=== PATIENT | male | born 1985 | race Caucasian/White ===

== ENCOUNTER 2019-04-09 10:18 | Inpatient (IN) | payer OTHER ==
[2019-04-09 13:11] VITALS: BMI 20.6
--- NOTE | 2019-04-09 14:35 | HP ---
COWS - Scale Resting Pulse: 0= ID 80 or Below Sweatin= Chills/Flushing Restless Observation: 1= Difficult to Sit Still Pupil Size: 1= Pupils >than Normal Bone or Joint Aches: 1= Mild Discomfort Runny Nose/ Eye Tearin= Nasal Congestion GI Upset > 30mins: 1= Stomach Cramp Tremor Observation: 2= Slight Tremor Visible Yawning Observation: 1= 1-2x During Session Anxiety or Irritability: 2=Irritable/Anxious Goose Flesh Skin: 0=Smooth Skin COWS Score: 11 CIWA Score Nausea/Vomitin Muscle Tremors: 3 Anxiety: 3 Agitation: 3 Paroxysmal Sweats: 2 Orientation: 2-Disoriented Date<2 days Tacttile Disturbances: 0-None Auditory Disturbances: 0-None Visual Disturbances: 0-None Headache: 3-Moderate CIWA-Ar Total Score: 19 - Admission Criteria [facility]ASAS Guidelines: Admission for Medically Managed Detox: Requires at least one of the followin. CIWA greater than 12 2. Seizures within the past 24 hours 3. Delirium tremens within the past 24 hours 4. Hallucinations within the past 24 hours 5. Acute intervention needed for co occurring medical disorder 6. Acute intervention needed for co occurring psychiatric disorder 7. Severe withdrawal that cannot be handled at a lower level of care (continued vomiting, continued diarrhea, abnormal vital signs) requiring intravenous medication and/or fluids 8. Admission ROS [facility] Chief Complaint: I WANNA GET BACK ON TRACK Allergies/Adverse Reactions: Allergies Allergy/AdvReac Type Severity Reaction Status Date / Time No Known Allergies Allergy Verified 04/09/19 13:01 History of Present Illness: GOT OFF METHADONE COLD TURKEY 4 MOS AGO THEN STARTED USING SUBXONE AND RELAPSED ABSTIENNT ON SUBOXONE X 2 YEARS HAS BEEN USING 3 BUNDLES DAILY - Ebola screening Have you traveled outside of the country in the last 21 days: No (N) Have you had contact with anyone from an Ebola affected area: No Do you have a fever: No - Review of Systems Constitutional: Loss of Appetite, Changes in sleep EENT: reports: Nose Congestion Respiratory: reports: No Symptoms reported Cardiac: reports: No Symptoms Reported GI: reports: Nausea, Abdominal cramping : reports: No Symptoms Reported Musculoskeletal: reports: Muscle Pain (STERNAL PAIN 2/2 TRAUMA) Integumentary: reports: Other (TRACTS) Neuro: reports: No Symptoms reported Endocrine: reports: No Symptoms Reported Hematology: reports: No Symptoms Reported Psychiatric: reports: Judgement Intact, Mood/Affect Appropiate, Orientated x3 Patient History - Patient Medical History Hx Anemia: No Hx Asthma: No Hx Chronic Obstructive Pulmonary Disease (COPD): No Hx Cancer: No Hx Cardiac Disorders: No Hx Congestive Heart Failure: No Hx Hypertension: No Hx Hypercholesterolemia: No Hx Pacemaker: No HX Cerebrovascular Accident: No Hx Seizures: Yes (BZO WITHDRAWAL 2 Y AGO) Hx Dementia: No Hx Diabetes: No Hx Gastrointestinal Disorders: No Hx Liver Disease: No Hx Genitourinary Disorders: No Hx Sexually Transmitted Disorders: No Hx Renal Disease (ESRD): No Hx Thyroid Disease: No Hx Human Immunodeficiency Virus (HIV): No Hx Hepatitis C: No Other Medical History: ANXIETY AND ADHD AGE 6 WAS RX ADDERRAL - Patient Surgical History Hx Orthopedic Surgery: Yes (ELBOW AND TOE) - Smoking Cessation Smoking history: Current every day smoker Have you smoked in the past 12 months: Yes Initiated information on smoking cessation: Yes 'Breaking Loose' booklet given: 04/09/19 - Substances abused Alprazolam (Xanax) Substance route: Oral Frequency: Daily Amount used: 2-3 bars Age of first use: 16 Date of last use: 04/08/19 Alcohol Substance route: Oral Frequency: Daily Amount used: 1-2 of vodka Age of first use: 14 Date of last use: 04/08/19 Heroin Other (specify): IV use Substance route: Injection Frequency: Daily Amount used: 2-3 bundles Age of first use: 26 Date of last use: 04/08/19 Admission Physical Exam S - Vital Signs Vital Signs: Vital Signs - 24 hr 04/09/19 13:03 Temperature 98.3 F Pulse Rate 76 Respiratory 16 Rate Blood Pressure 114/74 - Physical General Appearance: Yes: Irritable, Sweating, Anxious HEENTM: Yes: Within Normal Limits, EOMI, Hearing grossly Normal Respiratory: Yes: Within Normal Limits, Chest Non-Tender, Lungs Clear Neck: Yes: Within Normal Limits Breast: Yes: Breast Exam Deferred, Other (CHEST WALL TTP DIFFUSE) Cardiology: Yes: Within Normal Limits, Regular Rhythm, Regular Rate, S1, S2 Abdominal: Yes: Normal Bowel Sounds Genitourinary: Yes: Within Normal Limits Back: Yes: Within Normal Limits Musculoskeletal: Yes: Within Normal Limits, full range of Motion, Gait Steady Extremities: Yes: Within Normal Limits, Normal Capillary Refill, Normal Inspection Neurological: Yes: director employee safety and health II-XII NML intact, Alert, Motor Strength 5/5, Normal Mood /Affect Integumentary: Yes: Track Bowman - Diagnostic (1) Opiate withdrawal Current Visit: Yes Status: Acute (2) Benzodiazepine withdrawal Current Visit: Yes Status: Acute (3) Pain of sternum Current Visit: Yes Status: Acute Breathalyzer - Breathalyzer Breathalyzer: 0 Urine Drug Screen - Test Device Lot number: [id number] Expiration date: 12/16/20 - Control Is test valid?: Yes - Results Drug screen NEGATIVE: No Urine drug screen results: THC-Marijuana, LUCRECIA-Cocaine, FEN-Fentanyl, MOP-Opiates , MTD-Methadone Inpatient Rehab Admission - Rehab Decision to Admit Inpatient rehab admission?: No
[2019-04-09] MEDS ORDERED: NICOTINE POLACRILEX 2 MG GUM BUC PRN (14:45)
[2019-04-09] MEDS ORDERED: MAG HYDROX/AL HYDROX/SIMETH 30 ML UNIT-DOSE CUP PO PRN (14:45)
[2019-04-09] MEDS ORDERED: ACETAMINOPHEN 325 MG TABLET (FP) PO PRN ×2 (14:45)
[2019-04-09] MEDS ORDERED: MAGNESIUM HYDROX 2400MG/30ML ORAL SUSPENSION 30 ML CUP PO PRN (14:45)
[2019-04-09] MEDS ORDERED: METHADONE HCL 10 MG TABLET (FOR DETOX USE ONLY) PO ONE (14:45)
[2019-04-09] MEDS ORDERED: hydrOXYzine PAMOATE 25 MG CAPSULE (FP) PO PRN (14:45)
[2019-04-09] MEDS ORDERED: cloNIDine HCL 0.1 MG TABLET PO PRN (14:45)
[2019-04-09] MEDS ORDERED: BISMUTH SUBSALICYLATE 524 MG/30 ML UD PO PRN (14:45)
[2019-04-09] MEDS ORDERED: MAGNESIUM CITRATE 300 ML BOTTLE PO PRN (14:45)
[2019-04-09] MEDS ORDERED: MENTHOL/PHENOL 1 EACH UD MM PRN (14:45)
[2019-04-09] MEDS ORDERED: IBUPROFEN 400 MG TABLET (FP) PO PRN (14:45)
[2019-04-09] MEDS ORDERED: MELATONIN 5 MG TABLETS PO PRN (14:45)
[2019-04-09] MEDS: diazePAM 5 MG TABLET PO PRN (16:40)
[2019-04-09] MEDS: NICOTINE 21 MG/24 HOURS TOPICAL PATCH TD SCH (19:21)
[2019-04-09] MEDS: METHOCARBAMOL 500 MG TABLET PO PRN (19:21)
[2019-04-09] MEDS: diazePAM 5 MG TABLET PO SCH (22:00)
[2019-04-09] MEDS ORDERED: THIAMINE HCL 100 MG TABLET (FP) PO SCH (22:00)
[2019-04-10] MEDS: diazePAM 5 MG TABLET PO PRN ×2 (02:38→07:57)
[2019-04-10] MEDS: METHOCARBAMOL 500 MG TABLET PO PRN (02:38)
[2019-04-10] MEDS: diazePAM 5 MG TABLET PO SCH (05:55)
--- NOTE | 2019-04-10 07:06 | EKG ---
Test Reason : Blood Pressure : / mmHG Vent. Rate : 082 BPM Atrial Rate : 082 BPM P-R Int : 138 ms QRS Dur : 106 ms QT Int : 378 ms P-R-T Axes : 060 077 059 degrees QTc Int : 441 ms NORMAL SINUS RHYTHM NORMAL ECG NO PREVIOUS ECGS AVAILABLE Confirmed by RHONA AMANDA MD ([id number]) on 04/10/2019 7:06:10 AM Referred By: Confirmed By:RHONA AMANDA MD
[2019-04-10 07:07] VITALS: PULSE 57
[2019-04-10] MEDS ORDERED: LIDOCAINE VISCOUS 2% ORAL/TOP 20 ML UNIT-DOSE CUP MM PRN (07:43)
--- NOTE | 2019-04-10 07:45 | PN ---
[facility] Progress Note Note: xylocaine viscous 2% 20 mls prn for toothache q6hrs
[2019-04-10] MEDS ORDERED: METHADONE HCL 10 MG TABLET (FOR DETOX USE ONLY) ONE (09:24)
[2019-04-10] MEDS ORDERED: METHADONE HCL 5 MG TABLET (FOR DETOX USE ONLY) ONE (09:24)
[2019-04-10 09:32] VITALS: BP 106/70; TEMP 97.1
[2019-04-10] MEDS ORDERED: PRENATAL VITAMINS W/ FOLIC ACID TABLET (FP) PO SCH (10:00)
[2019-04-10] MEDS ORDERED: METHADONE (DETOX) 20 MG, METHADONE (DETOX) 5 MG PO ONE (10:00)
[2019-04-10 10:46] LABS: HEMATOCRIT 37.9 % (35.4-49); HEMOGLOBIN 12.9 GM/dL (11.7-16.9); MCH 32.1 pg (25.7-33.7); MEAN CELL VOLUME 94.5 fl (80-96); MEAN PLT VOLUME 8.8 fl (7.5-11.1); PLATELET COUNT 262 K/MM3 (134-434); RBC 4.01 M/mm3 (4.00-5.60); RDW 13.1 % (11.9-15.9); WHITE BLOOD COUNT 5.3 K/mm3 (4.0-10.0)
[2019-04-10 10:47] LABS: ALBUMIN 3.4 g/dl (3.4-5.0); BILIRUBIN,TOTAL 0.3 mg/dL (0.2-1); CALCIUM 9.5 mg/dL (8.5-10.1); CREATININE 0.7 mg/dL (0.55-1.3); POTASSIUM 3.8 mmol/L (3.5-5.1); TOT PROT 6.5 g/dl (6.4-8.2)
[2019-04-10] MEDS: NICOTINE 21 MG/24 HOURS TOPICAL PATCH TD SCH (10:59)
[2019-04-10] MEDS ORDERED: LORazepam 0.5 MG TABLET PO PRN (11:10)
--- NOTE | 2019-04-10 11:10 | PN ---
[facility] Progress Note (SOAP) Subjective: requests ativan for detox regimen
--- NOTE | 2019-04-10 12:24 | DS ---
[facility] Detox Discharge Summary Admission Date: 04/09/19 Discharge Date: 04/10/19 - History Present History: Alcohol Dependence, Opioid Dependence, Sedative Dependence Additional Comments: 33 years old male admitted on 04/09/19 for benzo and opiate withdrawal sx management requests more methadone encourage supportive therapeutic management patient request ativan that valium too slow not work for him modify ativan detox regimen instead of valium patient requests to [place] encourage the patient focus on sobriety encourage the patient consider medication assisted treatment program after lunch patient insists to leave the detox unit without apparent reason encourage the patient roll picker narcan from pharmacy - Physical Exam Results Vital Signs: Vital Signs Temperature 97.1 F L 04/10/19 09:31 Pulse Rate 57 L 04/10/19 09:31 Respiratory Rate 18 04/10/19 09:31 Blood Pressure 106/70 04/10/19 09:31 O2 Sat by Pulse Oximetry (%) Pertinent Admission Physical Exam Findings: alcohol benzo opiate withdrawal sx Laboratory Last Values WBC 5.3 K/mm3 (4.0-10.0) 04/10/19 08:30 RBC 4.01 M/mm3 (4.00-5.60) 04/10/19 08:30 Hgb 12.9 GM/dL (11.7-16.9) 04/10/19 08:30 Hct 37.9 % (35.4-49) 04/10/19 08:30 MCV 94.5 fl (80-96) 04/10/19 08:30 MCH 32.1 pg (25.7-33.7) 04/10/19 08:30 MCHC 34.0 g/dl (32.0-35.9) 04/10/19 08:30 RDW 13.1 % (11.9-15.9) 04/10/19 08:30 Plt Count 262 K/MM3 (134-434) 04/10/19 08:30 MPV 8.8 fl (7.5-11.1) 04/10/19 08:30 Sodium 138 mmol/L (136-145) 04/10/19 08:30 Potassium 3.8 mmol/L (3.5-5.1) 04/10/19 08:30 Chloride 105 mmol/L (98-107) 04/10/19 08:30 Carbon Dioxide 25 mmol/L (21-32) 04/10/19 08:30 Anion Gap 8 MMOL/L (8-16) 04/10/19 08:30 BUN 15.0 mg/dL (7-18) 04/10/19 08:30 Creatinine 0.7 mg/dL (0.55-1.3) 04/10/19 08:30 Est GFR (CKD-EPI)AfAm 143.71 04/10/19 08:30 Est GFR (CKD-EPI)NonAf 123.99 04/10/19 08:30 Random Glucose 94 mg/dL (74-106) 04/10/19 08:30 Calcium 9.5 mg/dL (8.5-10.1) 04/10/19 08:30 Total Bilirubin 0.3 mg/dL (0.2-1) 04/10/19 08:30 AST 10 U/L (15-37) L 04/10/19 08:30 ALT 20 U/L (13-61) 04/10/19 08:30 Alkaline Phosphatase 77 U/L (45-117) 04/10/19 08:30 Total Protein 6.5 g/dl (6.4-8.2) 04/10/19 08:30 Albumin 3.4 g/dl (3.4-5.0) 04/10/19 08:30 RPR Titer Nonreactive (NONREACTIVE) 04/10/19 08:30 lab noted - Treatment Hospital Course: Detox Protocol Followed, Responded well Patient has Accepted a Rehab Referral to: medication assisted treatment program - Medication Discharge Medications: Ambulatory Orders Naloxone HCl [Narcan] 4 mg NS ASDIR PRN #1 spray 04/10/19 - Diagnosis (1) Alcohol dependence with uncomplicated withdrawal Status: Acute (2) Benzodiazepine withdrawal Status: Acute Qualifiers: Complication of substance-induced condition: uncomplicated Qualified Code(s ): F13.230 - Sedative, hypnotic or anxiolytic dependence with withdrawal, uncomplicated (3) Opiate withdrawal Status: Acute - AMA Did Patient Leave Against Medical Advice: Yes CIWA Score - CIWA Score Nausea/Vomitin Muscle Tremors: 2 Anxiety: 2 Agitation: 2 Paroxysmal Sweats: 1-Minimal Palms Moist Orientation: 0-Oriented Tacttile Disturbances: 0-None Auditory Disturbances: 0-None Visual Disturbances: 0-None Headache: 3-Moderate CIWA-Ar Total Score: 12 COWS (PN) - Opiate Withdrawal Resting Pulse: 0= [place] 80 or Below Sweatin= Chills/Flushing Restless Observation: 0= Sits Still Pupil Size: 0= Normal to Room Light Bone or Joint Aches: 2= Severe Diffuse Aches Runny Nose/ Eye Tearin= Nasal Congestion GI Upset > 30mins: 2= Nausea/Diarrhea (no diarrhea) Tremor Observation of Outstretched Hands: 2= Slight Tremor Visible Yawning Observation: 2= >3x During Session Anxiety or Irritability: 2=Irritable/Anxious Goose Flesh Skin: 0=Smooth Skin COWS Score: 12
[2019-04-10] MEDS ORDERED: LORazepam 0.5 MG TABLET PO SCH (14:00)
[2019-04-11] MEDS ORDERED: LORazepam 0.5 MG TABLET PO PRN (01:00)
[2019-04-11] MEDS ORDERED: LORazepam 0.5 MG TABLET PO SCH (05:00)
[2019-04-11] MEDS ORDERED: diazePAM 5 MG TABLET PO SCH (06:00)
[2019-04-11] MEDS ORDERED: METHADONE HCL 10 MG TABLET (FOR DETOX USE ONLY) PO ONE (10:00)
[2019-04-12] MEDS ORDERED: LORazepam 0.5 MG TABLET PO ONE (05:00)
[2019-04-12] MEDS ORDERED: diazePAM 5 MG TABLET PO ONE (06:00)
[2019-04-12] MEDS ORDERED: METHADONE (DETOX) 10 MG, METHADONE (DETOX) 5 MG PO ONE (10:00)
[2019-04-13] MEDS ORDERED: METHADONE HCL 10 MG TABLET (FOR DETOX USE ONLY) PO ONE (10:00)
[2019-04-14] MEDS ORDERED: METHADONE HCL 5 MG TABLET (FOR DETOX USE ONLY) PO ONE (06:00)
== END 2019-04-10 11:44 | disposition left against medical advice (07) | DRG 770 ==
LOC: YASAS 10:18 → Y3N 14:52
PROVIDERS: ADMIT Surgery; ATTEND Surgery
PROC: HZ2ZZZZ Detoxification Services for Substance Abuse Treatment (ICD-10-PCS; principal; 2019-04-09)
DX: F11.23 Opioid dependence with withdrawal (principal); F10.230 Alcohol dependence with withdrawal, uncomplicated; F13.230 Sedative, hypnotic or anxiolytic dependence with withdrawal, uncomplicated; F17.210 Nicotine dependence, cigarettes, uncomplicated; K08.89 Other specified disorders of teeth and supporting structures; R07.2 Precordial pain; Z86.69 Personal history of other diseases of the nervous system and sense organs
CPT/HCPCS: 36415; 80053; 85027; 86593; 93005; 93010; J0735

== ENCOUNTER 2024-10-13 16:13 | Inpatient (IN) | payer OTHER ==
[2024-10-13 16:42] VITALS: BMI 21.6
[2024-10-13] MEDS ORDERED: guaiFENesin 600 MG TABLET.ER (FP) PO PRN (18:11)
[2024-10-13] MEDS ORDERED: NALOXONE (NARCAN) HCL 4 MG/0.1 ML SPRAY NS PRN (18:11)
[2024-10-13] MEDS ORDERED: MAG HYDROX/AL HYDROX/SIMETH 30 ML UNIT-DOSE CUP PO PRN (18:11)
[2024-10-13] MEDS ORDERED: BENZOCAINE/MENTHOL (CHLORASEPTIC ) LOZENGE MM PRN (18:11)
[2024-10-13] MEDS ORDERED: ACETAMINOPHEN 325 MG TABLET (FP) PO PRN (18:11)
[2024-10-13] MEDS ORDERED: BENZONATATE 200 MG CAPSULE PO PRN (18:11)
[2024-10-13] MEDS ORDERED: BISMUTH SUBSALICYLATE 524 MG/30 ML PO PRN (18:11)
[2024-10-13] MEDS ORDERED: ONDANSETRON *ODT* 4 MG TABLET SL PRN (18:11)
[2024-10-13] MEDS ORDERED: POLYETHYLENE GLYCOL (HEALTHYLAX) 3350 17 GM PACKET PO PRN (18:11)
[2024-10-13] MEDS ORDERED: DICYCLOMINE HCL 10 MG CAPSULE PO PRN (18:11)
[2024-10-13] MEDS ORDERED: LOPERAMIDE HCL 2 MG CAPSULE PO PRN (18:11)
[2024-10-13] MEDS ORDERED: MAGNESIUM HYDROX 2400MG/30ML ORAL SUSPENSION 30 ML CUP PO PRN (18:11)
[2024-10-13] MEDS ORDERED: PRENATAL VITAMINS W/ FOLIC ACID TABLET (FP) PO ONE (18:53)
[2024-10-13] MEDS: PRENATAL VITAMINS W/ FOLIC ACID TABLET (FP) PO SCH (19:21)
[2024-10-13] MEDS: THIAMINE 100 MG TABLET PO SCH (22:33)
[2024-10-13] MEDS: MELATONIN 5 MG TABLETS PO SCH (22:33)
[2024-10-13] MEDS: cloNIDine HCL 0.1 MG TABLET PO SCH (22:34)
[2024-10-13] MEDS: METHOCARBAMOL 500 MG TABLET PO PRN (22:35)
[2024-10-13] MEDS: hydrOXYzine PAMOATE 25 MG CAPSULE (FP) PO PRN (22:35)
[2024-10-14] MEDS: diazePAM 5 MG TABLET PO SCH (11:30)
[2024-10-14] MEDS: methaDONE HCL 10 MG TABLET PO ONE (13:03)
[2024-10-14] MEDS: diazePAM 5 MG TABLET PO PRN (20:04)
[2024-10-14] MEDS: IBUPROFEN 400 MG TABLET (FP) PO PRN (22:53)
[2024-10-14] MEDS: SUVOREXANT 10 MG TABLET PO PRN (23:26)
[2024-10-15] MEDS ORDERED: cloNIDine HCL 0.1 MG TABLET PO PRN
[2024-10-15] MEDS: diazePAM 5 MG TABLET PO SCH (06:15)
[2024-10-15] MEDS: methaDONE HCL 10 MG TABLET PO ONE ×3 (09:31→10:52)
[2024-10-15] MEDS: IBUPROFEN 600 MG TABLET (FP) PO PRN (21:08)
[2024-10-16] MEDS: diazePAM 5 MG TABLET PO SCH (05:27)
[2024-10-16] MEDS: methaDONE HCL 40 MG DISPERSABLE TABLET PO ONE (11:06)
[2024-10-16] MEDS ORDERED: levETIRAcetam 500 MG TABLET (FP) PO ONE (13:37)
[2024-10-16] MEDS: GABAPENTIN 300 MG CAPSULE PO SCH (14:50)
[2024-10-16] MEDS: levETIRAcetam 500 MG TABLET (FP) PO ONE (15:01)
[2024-10-16] MEDS: LORazepam 1 MG TABLET PO PRN (15:07)
[2024-10-16] MEDS: LORazepam 2 MG TABLET PO SCH (17:16)
[2024-10-16] MEDS: levETIRAcetam 500 MG TABLET (FP) PO SCH (21:17)
[2024-10-17] MEDS ORDERED: diazePAM 5 MG TABLET PO ONE (06:00)
[2024-10-17] MEDS: methaDONE HCL 40 MG DISPERSABLE TABLET PO SCH (06:25)
[2024-10-17] MEDS: LORazepam 1 MG TABLET PO SCH (06:26)
[2024-10-17 09:18] VITALS: BP 116/70; PULSE 66; RESP 18; TEMP 97.7
[2024-10-17] MEDS ORDERED: methaDONE HCL 10 MG TABLET PO ONE (10:00)
[2024-10-18] MEDS ORDERED: LORazepam 0.5 MG TABLET PO SCH (05:00)
[2024-10-19] MEDS ORDERED: LORazepam 0.5 MG TABLET PO ONE (05:00)
[2024-10-19] MEDS ORDERED: methaDONE HCL 10 MG TABLET PO ONE (10:00)
== END 2024-10-17 11:50 | disposition left against medical advice (07) | DRG 773 ==
LOC: YASAS 16:13 → Y6N 18:53
PROVIDERS: ADMIT Allergy & Immunology; ATTEND Psychiatry & Neurology Pain Medicine
PROC: HZ2ZZZZ Detoxification Services for Substance Abuse Treatment (ICD-10-PCS; principal; 2024-10-13)
DX: F10.230 Alcohol dependence with withdrawal, uncomplicated (principal); F13.230 Sedative, hypnotic or anxiolytic dependence with withdrawal, uncomplicated; F11.20 Opioid dependence, uncomplicated; F14.20 Cocaine dependence, uncomplicated; F12.20 Cannabis dependence, uncomplicated; F17.210 Nicotine dependence, cigarettes, uncomplicated; F19.280 Other psychoactive substance dependence with psychoactive substance-induced anxiety disorder; F91.8 Other conduct disorders; Z91.199 Patient's noncompliance with other medical treatment and regimen due to unspecified reason; Z59.00 Homelessness unspecified
CPT/HCPCS: 80305; 80307; 93005; 93010

== ENCOUNTER 2025-03-25 12:51 | Inpatient (IN) | payer OTHER ==
[2025-03-25] MEDS ORDERED: MAGNESIUM HYDROX 2400MG/30ML ORAL SUSPENSION 30 ML CUP PO PRN (14:07)
[2025-03-25] MEDS ORDERED: NALOXONE (NARCAN) HCL 4 MG/0.1 ML SPRAY NS PRN (14:07)
[2025-03-25] MEDS ORDERED: NALOXONE HCL 0.4 MG/ML VIAL IVPUSH PRN (14:07)
[2025-03-25] MEDS ORDERED: BENZOCAINE/MENTHOL (CHLORASEPTIC ) LOZENGE MM PRN (14:07)
[2025-03-25] MEDS ORDERED: guaiFENesin 600 MG TABLET.ER (FP) PO PRN (14:07)
[2025-03-25] MEDS ORDERED: BENZONATATE 200 MG CAPSULE PO PRN (14:07)
[2025-03-25] MEDS ORDERED: LOPERAMIDE HCL 2 MG CAPSULE PO PRN (14:07)
[2025-03-25] MEDS ORDERED: POLYETHYLENE GLYCOL (HEALTHYLAX) 3350 17 GM PACKET PO PRN (14:07)
[2025-03-25] MEDS: THIAMINE 100 MG TABLET PO SCH (21:55)
[2025-03-25] MEDS: MELATONIN 5 MG TABLETS PO SCH (21:55)
[2025-03-25] MEDS: METHOCARBAMOL 500 MG TABLET PO PRN (21:56)
[2025-03-25] MEDS ORDERED: QUEtiapine FUMARATE 100 MG TABLET (FP) PO SCH (22:00)
[2025-03-26] MEDS: PRENATAL VITAMINS W/ FOLIC ACID TABLET (FP) PO SCH (10:07)
[2025-03-26] MEDS: clonazePAM 0.5 MG ODT TABLETS SL SCH (10:52)
[2025-03-26] MEDS: DEXTROAMPHETAMINE/AMPHETAMINE 20 MG CAP.ER.24H PO ONE (12:01)
[2025-03-26] MEDS ORDERED: TUBERCULIN PPD 5 TU/0.1ML VIAL ID ONE (12:35)
[2025-03-26] MEDS: clonazePAM 1 MG ODT TABLETS SL SCH (17:13)
[2025-03-26] MEDS: hydrOXYzine PAMOATE 25 MG CAPSULE (FP) PO PRN (21:42)
[2025-03-27] MEDS: DEXTROAMPHETAMINE/AMPHETAMINE 20 MG CAP.ER.24H PO SCH (06:14)
[2025-03-27] MEDS ORDERED: DEXTROAMPHETAMINE/AMPHETAMINE 10 MG CAP.ER.24H PO ONE (11:00)
[2025-03-27] MEDS: NICOTINE 14 MG/24 HOURS TOPICAL PATCH TD SCH ×2 (15:02→15:12)
[2025-03-27] MEDS: BACLOFEN 10 MG TABLET (FP) PO SCH (21:12)
[2025-03-29] MEDS: DEXTROAMPHETAMINE/AMPHETAMINE 10 MG CAP.ER.24H PO SCH (06:43)
[2025-03-29] MEDS: MAG HYDROX/AL HYDROX/SIMETH 30 ML UNIT-DOSE CUP PO PRN (07:45)
[2025-03-29] MEDS: LIDOCAINE 5% TOPICAL PATCH TP SCH (11:19)
[2025-03-29] MEDS: ACETAMINOPHEN 325 MG TABLET (FP) PO PRN (17:19)
[2025-03-29] MEDS: ONDANSETRON *ODT* 4 MG TABLET SL ONE (17:52)
[2025-03-29] MEDS: BACLOFEN 10 MG TABLET (FP) PO SCH (17:53)
[2025-03-29] MEDS: LIDOCAINE PATCH REMOVAL MC SCH (21:08)
[2025-03-29] MEDS: IBUPROFEN 600 MG TABLET (FP) PO PRN (21:12)
[2025-04-02] MEDS: hydrOXYzine PAMOATE 25 MG CAPSULE (FP) PO PRN (15:36)
[2025-04-02] MEDS: IBUPROFEN 400 MG TABLET (FP) PO PRN (15:36)
[2025-04-04] MEDS: DEXTROAMPHETAMINE PO SCH (06:31)
[2025-04-04] MEDS: AMPHETAMINE PO SCH (06:31)
[2025-04-04] MEDS ORDERED: DEXTROAMPHETAMINE/AMPHETAMINE 10 MG CAP.ER.24H PO SCH (07:00)
[2025-04-07] MEDS: NICOTINE POLACRILEX 4 MG GUM BUC PRN (18:14)
[2025-04-10 20:33] VITALS: RESP 16
[2025-04-11 06:56] VITALS: TEMP 97.3
[2025-04-11 08:49] VITALS: BP 134/95; PULSE 86
[2025-04-11] MEDS ORDERED: LACTULOSE 20 GM/30 ML UDC (FOR ORAL USE ONLY) PO SCH (14:00)
== END 2025-04-11 10:44 | disposition home or self-care (01) | DRG 772 ==
LOC: YASAS 12:51 → Y3NR 12:52 → Y3E 03-26 10:48
PROVIDERS: ADMIT Family Medicine; ATTEND Psychiatry & Neurology Pain Medicine
PROC: HZ42ZZZ Group Counseling for Substance Abuse Treatment, Cognitive-Behavioral (ICD-10-PCS; principal; 2025-03-25)
DX: F11.20 Opioid dependence, uncomplicated (principal); F10.20 Alcohol dependence, uncomplicated; F14.20 Cocaine dependence, uncomplicated; F13.20 Sedative, hypnotic or anxiolytic dependence, uncomplicated; F12.20 Cannabis dependence, uncomplicated; F17.210 Nicotine dependence, cigarettes, uncomplicated; F19.280 Other psychoactive substance dependence with psychoactive substance-induced anxiety disorder; F43.10 Post-traumatic stress disorder, unspecified; S29.8XXA Other specified injuries of thorax, initial encounter; S21.101A Unspecified open wound of right front wall of thorax without penetration into thoracic cavity, initial encounter; W01.198A Fall on same level from slipping, tripping and stumbling with subsequent striking against other object, initial encounter; Y93.89 Activity, other specified; Y92.231 Patient bathroom in hospital as the place of occurrence of the external cause; Z59.01 Sheltered homelessness
CPT/HCPCS: 36415; 71101-TC-RT-FY; 73610-TC-LT-FY; 73610-TC-RT-FY; 73630-TC-LT; 73630-TC-RT-FY; 86803; J0475; Q0162